=== PATIENT | male | born 1965 | race Caucasian/White ===

== ENCOUNTER → 2024-04-05 | Outpatient (REF) | payer OTHER, SELFPAY | LOC: DHSLP | PROVIDERS: ATTENDING PHYSICIAN Internal Medicine Critical Care Medicine; FAMILY PHYSICIAN Family Medicine | DX: G47.33 Obstructive sleep apnea (adult) (pediatric) (principal) | CPT/HCPCS: 95800 ==

== ENCOUNTER → 2024-09-11 13:17 | Outpatient (REF) | payer OTHER, SELFPAY | LOC: RAD 13:17 | PROVIDERS: ATTENDING PHYSICIAN Registered Nurse Ambulatory Care | DX: M25.561 Pain in right knee (principal) | CPT/HCPCS: 73564 ==

== ENCOUNTER → 2024-10-23 10:16 | Outpatient (REF) | payer OTHER, SELFPAY | LOC: RCS 10:16 | PROVIDERS: ATTENDING PHYSICIAN Nurse Practitioner Adult Health; FAMILY PHYSICIAN Family Medicine | DX: I10 Essential (primary) hypertension (principal); R00.2 Palpitations | CPT/HCPCS: 93225; 93226 ==

== ENCOUNTER → 2025-02-18 09:31 | Outpatient (REF) | payer OTHER, SELFPAY ==
--- NOTE | 2025-02-18 11:28 | CARDSERVDEF ---
Echocardiogram with Definity completed after protocol screening completed. Allergies verified.
Patent IV site: 22 g angio inserted in RAC - second attempt. Unsuccessful RFA attempt.
IV site flushed with 0.9% NaCl pre and post administration.
Diluted bolus method utilized to enhance visualization of ventricular gallardo.
Total volume given: 5 mL
Patient tolerated all procedures well without complications.
IV d/c'd and bandage applied after pressure held.
== END ==
LOC: RCS 09:31
PROVIDERS: ATTENDING PHYSICIAN Internal Medicine Cardiovascular Disease; FAMILY PHYSICIAN Family Medicine
DX: R07.89 Other chest pain (principal)
CPT/HCPCS: 93017; 93350; Q9957

== ENCOUNTER → 2025-05-13 07:04 | Outpatient (REF) | payer OTHER, SELFPAY | LOC: RAD 07:04 | PROVIDERS: ATTENDING PHYSICIAN Family Medicine | DX: R10.10 Upper abdominal pain, unspecified (principal) | CPT/HCPCS: 74176 ==

== ENCOUNTER → 2025-05-19 14:51 | Outpatient (REF) | payer OTHER, SELFPAY | LOC: HWRAD 14:51 | PROVIDERS: ATTENDING PHYSICIAN Family Medicine | DX: K80.20 Calculus of gallbladder without cholecystitis without obstruction (principal); R10.10 Upper abdominal pain, unspecified | CPT/HCPCS: 76700 ==

== ENCOUNTER 2025-08-20 06:40 | Day surgery (SDC) | payer OTHER, SELFPAY ==
[2025-08-20] VITALS (18 sets, daily range): BP systolic 111–168; BP diastolic 80–96; BMI 29.9
[2025-08-20] MEDS: NORMOSOL-R/PLASMALYTE-A 1000 IV ×2 (13:20→21:15)
[2025-08-20 13:27] LABS: Glucose - Point of Care 105 mg/dl (70-99)
[2025-08-20] MEDS: CELEBREX 200 MG PO (13:37)
[2025-08-20] MEDS: TYLENOL 1000 MG PO (13:38)
[2025-08-20 16:16] LABS: Glucose - Point of Care 212 mg/dl (70-99)
[2025-08-20] MEDS: DILAUDID 0.5 MG IV ×4 (16:18→17:02)
[2025-08-20] MEDS: ZOFRAN 4 MG IV ×2 (16:23→21:06)
[2025-08-20] MEDS: TORADOL 30 MG IV (17:06)
[2025-08-20] MEDS: DILAUDID 1 MG IV ×5 (17:22→18:22)
[2025-08-20] MEDS: NOVOLOG vial 1 UNITS SC (17:34)
[2025-08-20] MEDS: DILAUDID PCA 30 IV (18:36)
[2025-08-20] MEDS: OFIRMEV 100 IV (18:49)
--- NOTE | 2025-08-20 18:56 | W.PN.SURGUPD ---
Surgical Update
Surgical Update
Patient with acute on chronic pain issues. Currently pain is at a level that is not deemed safe for discharge from the hospital. Plan for admission and pain control. All questions answered.
--- NOTE | 2025-08-20 19:45 | PTCARENOTE ---
Recievd Pt. from [facility]. Pt pulled over from stretcher to bed. Pt. oriented to unit and call welch placed within reach. Pt. care ongoing.
[2025-08-20 20:59] LABS: Glucose - Point of Care 188 mg/dl (70-99)
[2025-08-20] MEDS: NSS (PRESERVATIVE FREE) 0.9 ML IV (21:09)
[2025-08-20] MEDS: PROTONIX IV 40 MG IV (21:09)
[2025-08-20] MEDS: COMPAZINE 5 MG IV (23:22)
[2025-08-20] MEDS: PAMELOR PO (23:28)
[2025-08-21 03:00] VITALS: BP 138/81
[2025-08-21] MEDS: ZOFRAN 4 MG IV ×2 (04:46→14:41)
[2025-08-21 07:15] VITALS: BP 146/81
--- NOTE | 2025-08-21 07:25 | W.PN.GS2 ---
Addendum entered and electronically signed by Arnel Palafox MD 08/21/25 14:18:
Labs notable for reactive leukocytosis. Hemoglobin okay, tachycardia improved, BP stable, urinating. LFTs mildly elevated likely related to liver manipulation and cautery. Bilirubin and ALP noted to be normal.
Weaned off the [employer]. Pain overall stable and improved on his oral outpatient regimen. Sats well on room air. Mild nausea remains. Encouraged continued outpatient use of MiraLAX.
DC today, patient is in agreement.
Original Note:
Today's Communication / Plan
-
-- Dispo pending pain control
Assessment / Plan
-
Patient is a 60 yo M POD#1 s/p laparoscopic cholecystectomy
AVSS
Labs pending
Acute on chronic issues with pain.
-- CC diet
-- HLIV
-- Home pain meds, [employer] HAND wean as able
-- F/u AM labs
-- DVT: Lovenox
-- GI: PPI
Subjective Data
-
Date of Service: August 21, 2025
Pain. Issues with nausea and emesis overnight.
Objective Data
-
Intake and Output
08/20/25 08/21/25 08/22/25
06:59 06:59 06:59
Intake Total 700 / 700
Output Total 1750 / 1750
Balance -1050 / -1050
Intake:
IV fluids (Total) 700 / 700
normosol 300 / 300
Output:
Emesis 200 / 200
Urine, Voided 1550 / 1550
Vital Signs
Temp Pulse Resp BP Pulse Ox
97.9 F 93 16 138/81 99
08/21/25 03:00 08/21/25 03:00 08/21/25 06:05 08/21/25 03:00 08/21/25 06:05
Physical Exam
-
Gen: NAD
Abd: soft, tender to palpation, ND, non-peritoneal, incisions c/d/i - no erythema, ecchymosis or drainage
Patient has a toscano catheter: No
Patient has a central line: No
[2025-08-21 08:21] LABS: Glucose - Point of Care 137 mg/dl (70-99)
[2025-08-21] MEDS: NOVOLOG FLEXPEN-MODERATE RESISTANCE SC (08:26)
[2025-08-21] MEDS: PAMELOR 10 MG PO (08:27)
[2025-08-21] MEDS: LIDOCAINE 4% PATCH 1 PATCH TOPICAL (08:27)
[2025-08-21] MEDS: PROTONIX IV 40 MG IV (08:28)
[2025-08-21] MEDS: TORADOL 15 MG IV ×2 (08:32→14:41)
[2025-08-21] MEDS: MIRALAX 17 GRAMS PO (11:09)
[2025-08-21 11:15] VITALS: BP 152/81
[2025-08-21 12:15] LABS: Hematocrit 34.7 % (39.0-52.0); Hemoglobin 11.8 g/dL (13.0-18.0); Mean Corp Hgb Conc. 34.0 g/dL (33.0-37.0); Mean Corpuscular Volume 87.2 fL (80.0-94.0); Platelet Count 172 10^3/uL (130-400); Red Cell Dist. Width 12.7 % (11.5-14.5)
--- NOTE | 2025-08-21 12:20 | CM ---
Addendum entered by Lorraine Ren 08/21/25 14:48:
Patient will d/c home today
No CM needs at this time
Original Note:
Patient seen bedside, initial assessment completed. Patient is a 60 yo M POD#1 s/p laparoscopic cholecystectomy.
Patient resides w/ spouse in a [facility], 4 steps to enter from the outside. Patient is independent in all areas. Patient has a CPAP that he uses at night, can't recall the supplier's name. Denies SNF/HC hx.
Address, point of contact and insurance verified
PCP: Bolivar Brown
Pharmacy: [facility]
Plan: Home, no needs anticipated
[2025-08-21 12:24] LABS: Glucose - Point of Care 181 mg/dl (70-99)
[2025-08-21 12:31] LABS: ALT (SGPT) 72 U/L (0-50); AST (SGOT) 76 U/L (17-59); Albumin 4.0 g/dl (3.5-5.0); Alkaline Phosphatase 65 U/L (38-126); Total Protein 7.0 g/dl (6.3-8.2)
[2025-08-21 12:32] LABS: Blood Urea Nitrogen 24 mg/dl (9-20); Calcium 8.9 mg/dl (8.4-10.2); Carbon Dioxide 27 mmol/L (22-30); Chloride 100 mmol/L (98-107); Estimated Creatinine Clearance 72 ml/min; Glucose 166 mg/dl (70-99); Potassium 4.9 mmol/L (3.5-5.1); Sodium 134 mmol/L (135-145); eGFR > 60.00
[2025-08-21] MEDS: NOVOLOG FLEXPEN-MODERATE RESISTANCE 1 UNITS SC (12:40)
[2025-08-21] MEDS: ROXICODONE 10 MG PO (12:41)
[2025-08-21] MEDS: TYLENOL 325 MG PO (12:42)
[2025-08-21 13:26] LABS: Glycohemoglobin (HgbA1c) 5.4 % (4.0-5.6)
[2025-08-21 15:32] VITALS: BP 145/80
--- NOTE | 2025-08-21 15:52 | TRANSFER ---
Patient discharged to home. Discharge packet reviewed by this RN with patient and his . IV removed. All belongings accounted for. Patient wheeled down to main lobby for discharge to home.
== END 2025-08-21 16:26 | disposition home or self-care (01) ==
LOC: SDS 06:40
PROVIDERS: ATTENDING PHYSICIAN Surgery
DX: K80.10 Calculus of gallbladder with chronic cholecystitis without obstruction (principal)
CPT/HCPCS: 47562; 80048; 80076; 82962; 83036; 85027; 87070; 88304